=== PATIENT | female | born 1995 | race Caucasian/White ===

== ENCOUNTER 2023-12-30 13:01 | Emergency (ER) | payer OTHER, SELFPAY ==
[2023-12-30 13:03] VITALS: BP 142/75
--- NOTE | 2023-12-30 13:42 | ED.MUSCINJ ---
HPI-Injury
General
Chief Complaint: Musculo-Skeletal Complaint
Source: patient
Exam Limitations: none
Time Seen by Provider: 12/30/23 13:28
Travel History
Have you had any contact with someone who has COVID-19?: No
Do you have any symptoms of coronavirus? Fever > 100 degrees, chills, cough, shortness of breath, sore throat, loss of taste or smell, muscle aches, or headache?: No
History of Present Illness-Injury
Initial Injury comments:
28-year-old female presents complaining of right chest wall pain starting last week but getting worse yesterday. She leaned over an armrest in a car and felt some pain at that time. The pain was tolerable until yesterday when she felt something
pop moving a hamper. No hematuria. No shortness of breath. No hemoptysis. No other complaints at this time
Past History
Past History
ED Past Medical History: Asthma, GERD (w/ gastric ulcer), Valvular disease (bicuspid AV) and Psychiatric (anxiety)
ED Past Surgical History: None
Social History
Tobacco: Non-smoker
Family History
Family History: Negative Diabetes, Hypertension or CAD
Phy Exam
Physical Exam
Physical Exam:
General: Well-appearing female no acute respiratory distress
HEENT: Normocephalic atraumatic
Musculoskeletal exam: Right chest wall tender laterally and anteriorly. No step-off ecchymosis or deformity
Abdomen soft nontender no costovertebral angle 10
Injury Course
Orders/Labs/Results
Orders:
Orders
12/30/23 13:06
Ribs, Right 3 View W/PA Chest [CR Ribs-right 3 Vw W/pa Chest*] Urgent
Comment:
Reason For Exam: injury
MDM/Problems Addressed
Differential Diagnosis Includes:
Right chest wall pain. Differential could include contusion versus strain versus fracture versus pneumothorax
Right rib series was ordered through triage which I have personally reviewed and demonstrates nondisplaced seventh rib fracture without associated pneumothorax. Recommended ibuprofen and Tylenol. Return precautions were given stable for discharge
*Critical Care Note
Total Time (30-74mins, 75-104mins- exclusive of procedures): Not Applicable
ED Attending Note
-
Portions of this chart may have been created with voice recognition software.� Occasional wrong word or��sound alike� substitutions may have occurred due to the inherent limitations of voice recognition software.
Discharge Plan
Departure
Patient Disposition: Home (Routine Discharge)
Date of Disposition: 12/30/23
Time of Disposition: 13:44
Patient with high blood pressure during this ER visit?: No
Discharge Problem:
Fracture of rib
Instructions: Muscle and Bone Pain (DC)
Prescriptions:
No Action
albuterol sulfate 0.63 MG/3 ML solution for nebulization
0.63 mg IH PRN PRN (Reason: asthma)
lisdexamfetamine [Vyvanse] 50 MG capsule
50 mg PO DAILY
desvenlafaxine 50 MG tablet extended release 24hr
50 mg PO DAILY
lisdexamfetamine [Vyvanse] 10 MG capsule
10 mg PO DAILYPRN PRN (Reason: concentration)
sucralfate 1 GM/10 ML suspension
1 gm PO QID Qty: 400 0RF
Rx Instructions:
take 1 hr prior to meals and at bedtime
pantoprazole 40 MG tablet,delayed release (DR/EC)
40 mg PO HS Qty: 14 0RF
Referrals:
Noy Pantoja MD [Family Provider] -
Activity Restrictions/Additional Instructions:
Use ibuprofen and Tylenol for pain. Avoid heavy lifting or twisting. Return if worse otherwise follow-up with your family doctor
Interventions
Interventions:
*Risk Screen - Suicide Last Done: 12/30/23 13:03
*General Assessment Last Done: 02/19/24 13:03
*Neglect/Abuse Screening Last Done: 12/30/23 13:03
ED-Musculoskeletal Assessment Last Done: 12/30/23 13:40
== END 2023-12-30 14:12 | disposition home or self-care (01) ==
LOC: EMR 13:01
PROVIDERS: EMERGENCY PHYSICIAN Emergency Medicine; FAMILY PHYSICIAN Family Medicine
DX: S22.31XA Fracture of one rib, right side, initial encounter for closed fracture (principal); W22.8XXA Striking against or struck by other objects, initial encounter
CPT/HCPCS: 99283; 71101